=== PATIENT | female | born 1965 | race Caucasian/White ===

== ENCOUNTER 2019-12-13 16:09 | Inpatient (IN) ==
[2019-12-13] MEDS ORDERED: VANCOMYCIN 1 GM/NS 1 GM/250 ML IVPB IV ONE (17:13)
--- NOTE | 2019-12-13 17:32 | Vascular Study Report ---
EXAM: Venous U/S Right Leg HISTORY: right lower leg pain, has been treated for celluli TECHNIQUE: Right lower extremity venous Doppler ultrasound COMPARISON: None. FINDINGS: There is good flow and compressibility of the veins of the right lower extremity. No thrombus. IMPRESSION: No evidence of deep venous thrombosis within the right lower extremity. Electronically signed by Wolfgang Servin 12/13/2019 5:29 PM
--- NOTE | 2019-12-13 17:45 | PROVIDER DOCUMENTATION ---
This chart was entered by Florence Kenny Scribe, acting as scribe for Minnie Landa MD. HPI-Rash/Wound/ReCheck - General Chief Complaint: Extremity Pain Stated Complaint: LEG PAIN Time Seen by Provider: 12/13/19 16:37 Source: patient Allergies/Adverse Reactions: Allergies Allergy/AdvReac Type Severity Reaction Status Date / Time amoxicillin trihydrate * Allergy Intermediate ITCHING Verified 12/13/19 18:30 [From Augmentin] cephalexin monohydrate * Allergy Intermediate ANAPHYLAXIS Verified 12/13/19 18:30 [From Keflex] potassium clavulanate * Allergy Intermediate ITCHING Verified 12/13/19 18:30 [From Augmentin] Home Medications: Home Medication List Medication Instructions Recorded Confirmed Last Taken Type Metformin [Glucophage] 1 tab PO BID 12/13/19 12/13/19 Unknown History Sulfamethoxazole/Trimethoprim 1 tab PO BID 12/13/19 12/13/19 Unknown History [Sulfamethoxazole-Tmp Ds Tablet] - History of Present Illness-Dermatology Nature of Presenting Problem: 54yof presents to ED cc pain, redness, bleeding and warmth to RLE for 2 months. Pt reports she has been treated with 2 rounds of oral ABX(currently on Bactrim) for Cellulitis with no help. Pt denies Fever. Pt has hx of DM. Location: reports: lower extremity (RLE) Quality: reports: burning, painful, stinging Severity: reports: moderate, severe Onset/Duration: reports: other (2 months) Timing: reports: still present, changing over time, getting worse Context/Associated Symptoms: reports: other (cellulitis) Identifiable cause?: No Locality of Occurance: Home Similar Symptoms Previously?: Yes Recently seen or treated by another doctor?: Yes Review of Systems - Adult - REVIEW OF SYSTEMS - ADULT Constitutional: reports: see HPI. denies: chills, fever, fatique Eyes: reports: no symptoms reported Ears, Nose, Mouth & Throat: reports: no symptoms reported Cardiovascular: reports: see HPI. denies: chest pain Respiratory: reports: see HPI. denies: shortness of breath Gastrointestinal: reports: no symptoms reported Genitourinary: reports: no symptoms reported Musculoskeletal: reports: no symptoms reported Integumentary: reports: see HPI, skin sores/ulcer (RLE), other (cellulitis to RLE) Neurological: reports: no symptoms reported Psychiatric: reports: no symptoms reported Endocrine: reports: no symptoms reported Hematologic/Lymphatic: reports: no symptoms reported Allergic/Immunologic: reports: no symptoms reported All Other Systems: Reviewed and Negative Past History - Adult - PAST MEDICAL HISTORY-ADULT Review of Records: reports: Nursing Assessment Review, Medications Reviewed, Social history reviewed & non-contributory. Major Childhood Illnesses: reports: denies history Cardiovascular: reports: denies history Respiratory: reports: denies history Gastrointestinal: reports: denies history Obstetrical/Gynecological: reports: denies history Genitourinary: reports: denies history Musculoskeletal: reports: denies history Neurological: reports: denies history Endocrine/Immune: reports: denies history Other Conditions: reports: denies history - IMMUNIZATION STATUS Childhood Immunizations: See Nurse Assessment Flu Vaccine: See Nurse Assessment - FAMILY HISTORY Family History: reviewed, not pertinent Physical Exam-General - PHYSICAL EXAM-ADULT Initial Vital Signs Reviewed: Yes - CONSTITUTIONAL General Appearance: alert, obese. negative: anxious, combative - EYES Eyes: PERRL/EOMI, pink conjunctivae. negative: photophobia - HEAD, EARS, NOSE, MOUTH & THROAT HENMT: normocephalic/atraumatic, moist mucous membranes, other (mild slurred speech) - NECK Neck: supple - RESPIRATORY Respiratory: chest non-tender, lungs clear, normal breath sounds. negative: wheezing - CARDIOVASCULAR Cardiovascular: normal peripheral pulses, regular rate, rhythm. negative: bradycardia, tachycardia - MUSCULOSKELETAL Extremity: erythema (RLE front around to mid calf), tenderness (RLE front around to mid calf) - SKIN Integumentary: erythema (RLE front around to mid calf), tenderness (RLE front around to mid calf), warm (RLE front around to mid calf), other (oozing, pus and blood RLE front around to mid calf). negative: diaphoresis, jaundice - PSYCHIATRIC Psych/Mental Status: normal mood/affect, oriented x 3. negative: disheveled Progress - PLAN OF CARE/RESULTS Progress/Plan/Lab Results: Vital Signs - 8 hr 12/13/19 16:14 Temperature 97.7 F Pulse Rate 91 H Respiratory Rate 20 Blood Pressure 151/90 O2 Sat by Pulse Oximetry 97 Laboratory Results - last 24 hr 12/13/19 12/13/19 12/13/19 17:34 17:34 17:34 WBC 10.05 RBC 4.85 Hgb 14.9 Hct 43.8 MCV 90.3 MCH 30.7 MCHC 34.0 RDW Std Deviation 12.3 Plt Count 323 MPV 10.4 Immature Gran % (Auto) 0.1 Neut % (Auto) 68.7 Lymph % (Auto) 24.7 Marshall % (Auto) 4.7 Eos % (Auto) 1.5 Baso % (Auto) 0.3 Immature Gran # (Auto) 0.01 Neut # (Auto) 6.91 H Lymph # (Auto) 2.48 Marshall # (Auto) 0.47 Eos # (Auto) 0.15 Baso # (Auto) 0.03 PT INR PTT (Actin FS) Sodium 133 L Potassium 4.9 Chloride 96 L Carbon Dioxide 22 L Anion Gap 15 BUN 14 Creatinine 0.7 Estimated GFR/1.73 m2 > 60 BUN/Creatinine Ratio 20 Glucose 335 H Calculated Osmolality 280 Calcium 9.2 Total Bilirubin < 0.15 L AST 14 ALT 20 Alkaline Phosphatase 152 H Total Protein 6.7 Albumin 4.0 Globulin 3.0 Albumin/Globulin Ratio 1.0 Plasma Lactate 1.9 12/13/19 17:34 WBC RBC Hgb Hct MCV MCH MCHC RDW Std Deviation Plt Count MPV Immature Gran % (Auto) Neut % (Auto) Lymph % (Auto) Marshall % (Auto) Eos % (Auto) Baso % (Auto) Immature Gran # (Auto) Neut # (Auto) Lymph # (Auto) Marshall # (Auto) Eos # (Auto) Baso # (Auto) PT 11.8 INR 0.83 PTT (Actin FS) 25.0 Sodium Potassium Chloride Carbon Dioxide Anion Gap BUN Creatinine Estimated GFR/1.73 m2 BUN/Creatinine Ratio Glucose Calculated Osmolality Calcium Total Bilirubin AST ALT Alkaline Phosphatase Total Protein Albumin Globulin Albumin/Globulin Ratio Plasma Lactate Orders Category Date Time Status CHEST-PORTABLE [RAD] Stat Exams 12/13/19 17:12 Completed BLOOD CULTURE [BLDCUL] Stat Lab 12/13/19 18:26 Ordered CBC WITH ELECTRONIC DIFF [HEME] Stat Lab 12/13/19 17:34 Completed COMPREHENSIVE METABOLIC PANEL [CHEM] Stat Lab 12/13/19 17:34 Completed CRP HIGH SENSITIVITY Stat Lab 12/13/19 17:34 Received LACTATE, PLASMA [CHEM] Stat Lab 12/13/19 17:34 Completed PROTIME WITH INR [COAG] Stat Lab 12/13/19 17:34 Completed PTT [COAG] Stat Lab 12/13/19 17:34 Completed SED RATE [HEME] Stat Lab 12/13/19 17:34 Received URINALYSIS W/POSS RFLX CULT [URINALYSIS] Stat Lab 12/13/19 17:12 Uncollected URINE DRUG SCREEN PL Stat Lab 12/13/19 17:12 Uncollected 0.9% Sodium Chloride Inj [Ns] 1,000 ml Med 12/13/19 18:12 Active IV 999 mls/hr Piperacillin/Tazobactam [Zosyn] 4.5 gm Med 12/13/19 18:00 Active 0.9% Sodium Chloride Inj [Ns] 100 ml IV Q6H Vancomycin 1 gm/Ns Med 12/13/19 17:13 Discontinued 1 gm in 250 ml IV NOW US [Venous U/S Right Leg] Stat Ther 12/13/19 16:37 Completed Patient has failed outpatient therapy on bactrim. Will need admission. Spoke to Dr Oliva, communication [facility]. He states he will place orders for this patient. Result Diagrams: 12/13/19 17:34 12/13/19 17:34 - XRAY 1 XRAY Study: Chest (EXAM: CHEST-PORTABLE HISTORY: LE cellulitis, rule out other infection TECHNIQUE: Single view COMPARISON: 07/15/2013 FINDINGS: The lungs are well expanded. The heart is not enlarged. The vessels are not distended. There are no infiltrates. No effusion identified. IMPRESSION: No pneumonia) - ULTRASOUND (By Radiology) 1 US Study: Lower Ext (RLE) Impression: Normal (Negative for blood clot) - CONSULTS/PCP/HOSPITALIST Notification #1 *Consult/PCP/Hospitalist*: Krystal/EMPLOYER RELATIONS REPRESENTATIVE Time Discussed: 17:19 Consult Disposition: other (call back after all labs are back) #2 Consult: Dr Oliva Time Discussed: 18:48 Consult Disposition: Admit (States he will place orders for this patient.) Departure - Departure Date of Disposition Decision: 12/13/19 Time of Disposition Decision: 18:49 DIAGNOSIS: Cellulitis of right leg, Failure of outpatient treatment, Poorly controlled diabetes mellitus Disposition: ADMITTED INPATIENT 09 Certified Medical Emergency: Emergent Condition: Stable Referrals and Follow-Ups: None,PCP [Primary Care Provider] - - Critical Care Note This patient required my direct & personal management of CC.: No Attestation - Physician/ REYNA Attestation Patient care was provided by Advanced Practice Provider:: No The physician spent face to face time with patient:: Yes Advanced Practice Provider documentation review:: Supervising physician onsite and consulted in the evaluation and care of this patient. The physician did have a face to face encounter with the patient. This chart was documented by the indicated scribe, (Florence Kenny Scribe) and accurately reflects the services I performed and decisions made by me, Minnie Landa MD, as attested by the provider's signature.
[2019-12-13 17:52] LABS: BASO# 0.03 X1000 (0.0-0.2); BASO% 0.3 % (0.0-0.8); EOS# 0.15 X1000 (0.0-0.7); EOS% 1.5 % (0.0-10.0); HEMATOCRIT 43.8 % (37.0-47.0); HEMOGLOBIN 14.9 g/dL (12.0-16.0); IMM GRAN# 0.01 X1000 (0.0-0.04); IMM GRAN% 0.1 % (0.0-0.5); LYMPH# 2.48 X1000 (1.2-3.4); LYMPH% 24.7 % (20.5-51.1); MCH 30.7 PG (27-31); MCV 90.3 FL (81-99); MONO# 0.47 X1000 (0.11-0.59); MONO% 4.7 % (1.7-9.3); MPV 10.4 FL (7.4-10.4); NEUT# 6.91 X1000 (1.4-6.5); NEUT% 68.7 % (42.2-75.2); PLT 323 X1000 (130-400); RBC 4.85 XMIL (4.2-5.4); RDW 12.3 % (11.5-14.5); WBC 10.05 X1000 (4.8-10.8)
[2019-12-13] MEDS ORDERED: ZOSYN 4.5 GM in NS 100 ML IV SCH (18:00)
[2019-12-13 18:06] LABS: AGAP 15; ALKALINE PHOSPHATASE 152 U/L (32-104); BUN 14 mg/dL (8-22); CALCIUM 9.2 mg/dL (8.8-10.2); CHLORIDE 96 mmol/L (98-107); COSMO 280; CREATININE 0.7 mg/dL (0.5-0.9); ESTIMATED GFR > 60; GLUCOSE 335 mg/dL (70-104); GOT 14 U/L (10-30); GPT 20 U/L (10-36); POTASSIUM 4.9 mmol/L (3.5-5.1); SODIUM 133 mmol/L (136-145); TCO2 22 mmol/L (25-35); TOTAL BILIRUBIN < 0.15 mg/dL (0.20-1.00); TOTAL PROTEIN 6.7 g/dL (6.3-8.3)
[2019-12-13 18:08] LABS: INR 0.83; PROTIME 11.8 Seconds (11.0-16.0)
[2019-12-13] MEDS ORDERED: NS 1,000 ML IV ONE (18:12)
--- NOTE | 2019-12-13 18:20 | Diag Imaging Result Doc PS360 ---
EXAM: CHEST-PORTABLE HISTORY: LE cellulitis, rule out other infection TECHNIQUE: Single view COMPARISON: 07/15/2013 FINDINGS: The lungs are well expanded. The heart is not enlarged. The vessels are not distended. There are no infiltrates. No effusion identified. IMPRESSION: No pneumonia Electronically signed by Wolfgang Servin 12/13/2019 6:18 PM
[2019-12-13] MEDS ORDERED: MORPHINE IV PRN (19:05)
[2019-12-13 19:10] LABS: URINE SOURCE CLEAN CATCH
[2019-12-13 19:12] LABS: BILIRUBIN URINE NEGATIVE (NEGATIVE); BLOOD URINE NEGATIVE (NEGATIVE); COLOR YELLOW; GLUCOSE URINE >1000 mg/dL (NEGATIVE); KETONE URINE TRACE mg/dL (NEGATIVE); LEUKOCYTES URINE NEGATIVE (NEGATIVE); NITRITE URINE NEGATIVE (NEGATIVE); PROTEIN URINE TRACE mg/dL (NEGATIVE); SP GRAVITY URINE 1.042; TURBIDITY URINE CLEAR (CLEAR); UROBILINOGEN URINE NORMAL (NORMAL)
[2019-12-13] MEDS ORDERED: AZACTAM 2 GM in NS 100 ML IV SCH (19:15)
[2019-12-13] MEDS ORDERED: VANCOMYCIN IV PER PHARMACY MISC SCH (19:15)
[2019-12-13 19:26] LABS: UR AMPHETAMINES QUAL NONE DETECTED (NONE DETECT); UR BARBITUATES QUAL NONE DETECTED (NONE DETECT); UR BENZODIAZEPIN QUAL PRESUMPTIVE POSITIVE (NONE DETECT); UR CANNABINOIDS QUAL NONE DETECTED (NONE DETECT); UR COCAINE QUAL NONE DETECTED (NONE DETECT); UR METHADONE QUAL NONE DETECTED (NONE DETECT); UR METHAMPHETAMINE QUAL NONE DETECTED (NONE DETECT); UR OPIATES QUAL NONE DETECTED (NONE DETECT); UR OXYCODONE QUAL NONE DETECTED (NONE DETECT); UR PCP QUAL NONE DETECTED (NONE DETECT); UR PROPOXYPHENE QUAL NONE DETECTED (NONE DETECT); UR TCA QUAL NONE DETECTED (NONE DETECT)
[2019-12-13 19:54] LABS: UR EPITHELIAL CELLS >10 /HPF (<10); URINE BACTERIA 2+ /HPF; URINE CASTS NONE SEEN; URINE CRYSTALS NONE SEEN; URINE RBC <10 /HPF (<10); URINE WBC <10 /HPF (<10); URINE YEAST NONE SEEN
[2019-12-13] MEDS ORDERED: AZACTAM IV ONE (20:00)
[2019-12-13] MEDS ORDERED: NS IV ONE (20:00)
[2019-12-13] MEDS: CLINDAMYCIN 600 MG/D5W 600 MG/50 ML IVPB IV SCH (21:30)
[2019-12-13] MEDS: HUMALOG (PARKWAY) SUBQ SCH (21:30)
[2019-12-13] MEDS: MORPHINE IV PRN (21:31)
[2019-12-14] MEDS: VANCOMYCIN 1 GM/NS 1 GM/250 ML IVPB IV SCH ×2 (00:19→02:56)
[2019-12-14] MEDS: MORPHINE IV PRN ×4 (01:39→18:30)
[2019-12-14] MEDS: CLINDAMYCIN 600 MG/D5W 600 MG/50 ML IVPB IV SCH ×3 (05:33→21:28)
[2019-12-14] MEDS: HUMALOG (PARKWAY) SUBQ SCH ×4 (06:24→21:18)
[2019-12-14 06:28] LABS: BASO# 0.02 X1000 (0.0-0.2); BASO% 0.2 % (0.0-0.8); EOS% 2.3 % (0.0-10.0); HEMATOCRIT 40.2 % (37.0-47.0); HEMOGLOBIN 13.4 g/dL (12.0-16.0); IMM GRAN# 0.02 X1000 (0.0-0.04); IMM GRAN% 0.2 % (0.0-0.5); LYMPH# 2.64 X1000 (1.2-3.4); LYMPH% 30.7 % (20.5-51.1); MCH 30.6 PG (27-31); MCHC 33.3 g/dL (33-37); MCV 91.8 FL (81-99); MONO# 0.57 X1000 (0.11-0.59); MONO% 6.6 % (1.7-9.3); MPV 10.1 FL (7.4-10.4); NEUT# 5.15 X1000 (1.4-6.5); PLT 294 X1000 (130-400); RBC 4.38 XMIL (4.2-5.4); RDW 12.6 % (11.5-14.5)
[2019-12-14 06:49] LABS: HEMOGLOBIN A1C 12.5 % (4.8-6.0)
[2019-12-14 06:50] LABS: AGAP 12; ALBUMIN 3.5 g/dL (3.5-5.0); BUN 13 mg/dL (8-22); CALCIUM 8.6 mg/dL (8.8-10.2); CHLORIDE 100 mmol/L (98-107); COSMO 280; CREATININE 0.5 mg/dL (0.5-0.9); ESTIMATED GFR > 60; GLUCOSE 180 mg/dL (70-104); PHOSPHORUS 4.1 mg/dL (2.7-4.5); POTASSIUM 4.5 mmol/L (3.5-5.1); SODIUM 138 mmol/L (136-145); TCO2 26 mmol/L (25-35)
[2019-12-14] MEDS: AZACTAM 2 GM in NS 100 ML IV SCH ×2 (08:42→18:29)
[2019-12-14] MEDS ORDERED: VANCOMYCIN 2,000 MG in NS 500 ML IV SCH (10:00)
--- NOTE | 2019-12-14 13:45 | Diag Imaging Result Doc PS360 ---
EXAM: LOWER LEG-RIGHT 12/14/2019 HISTORY: ? osteo, chronic wound TECHNIQUE: Portable right lower leg four views COMMENT: There is subcutaneous edema particularly laterally. There is no evidence of fracture, dislocation, periosteal reaction, or erosion. There are soft tissue calcifications anterior to the tibia. These may be phleboliths. IMPRESSION: No evidence of acute bony abnormality. Soft tissue swelling/edema. Electronically signed by Oliver Diggs 12/14/2019 1:43 PM
--- NOTE | 2019-12-14 14:43 | HISTORY AND PHYSICAL ---
CHIEF COMPLAINT: Right lower extremity pain. HPI: This is a 54-year-old female with a history of diabetes mellitus who presents to the emergency room complaining of right lower extremity pain, redness, swelling and drainage for 2 months. She has been evaluated by an outside care provider and given clindamycin in September and Bactrim December 04. She does state that she took both prescriptions as prescribed and her leg has only gotten worse. She states that she has had yellow clear and bloody drainage from this area. She states that she does have intermittent pain she describes this is a stinging sensation. She denies any fevers or chills. PAST MEDICAL HISTORY: Diabetes mellitus. PAST SURGICAL HISTORY: , tubal ligation. SOCIAL HISTORY: She denies any alcohol, tobacco or illicit drug use. ALLERGIES: Amoxicillin, Augmentin which caused itching and Keflex which causes anaphylaxis. HOME MEDICATIONS: Metformin 500 mg b.i.d., Bactrim DS 1 p.o. b.i.d. REVIEW OF SYSTEMS: Discussed with patient with pertinent positives stated in the HPI. She denied any syncope, dizziness, chest pain, palpitations, shortness of breath, cough, fever, chills, any night sweats, any recent weight loss or weight gain, nausea, vomiting, diarrhea, constipation, any black or bloody vomitus or stools, hematuria dysuria frequency, urgency. PHYSICAL EXAMINATION: GENERAL: This is a 54-year-old female who is sitting up on the side of the bed eating in no distress. VITAL SIGNS: Blood pressure is 131/70 with heart rate 78, respirations 18, temperature is 97.9 degrees oral with room air saturations 100%. HEENT: Pupils equal, round, react to light. EOMs are intact. Sclerae are anicteric. Head is normocephalic, atraumatic. Mucous membranes are moist. NECK: Supple with trachea midline. No JVD. CARDIOVASCULAR: Regular rate and rhythm. S1 and S2 appreciated. She denies bilateral calf tenderness with peripheral pulses palpable x4 extremities. PULMONARY: Breath sounds are clear. No increased work of breathing noted. Chest rise falls symmetric respiration. Chest wall is nontender to palpation . GASTROINTESTINAL: Abdomen soft, nontender, nondistended. Bowel sounds in all 4 quadrants. NEUROLOGIC: She is alert, oriented x3. SKIN: Warm and dry. She has erythema noted to midcalf that goes around to midaxillary area, this area is warm to touch. It is oozing purulent yellow drainage as well as clear honey-colored drainage. LABS: WBC is 8.6 with hemoglobin 13.4, hematocrit 40.2 and platelets of 294,000. Sodium 138, potassium 4.5, BUN 13, creatinine 0.5 with blood sugars ranging from 180 to 330. Hemoglobin A1c is 12.5. Urinalysis has greater than 1000 glucose and greater than 10 epithelial cells with less than 10 microscopic red blood cells, white blood cells. Urine drug screen is presumptive positive for benzodiazepines. Blood cultures, urine culture pending. Chest x-ray reveals no pneumonia, no infiltrates, no effusion. ASSESSMENT AND PLAN: 1. Right lower extremity cellulitis failed outpatient treatment. 2. Poorly controlled diabetes mellitus with a hemoglobin A1c of 12.5. 3. The patient has been admitted to the medical-surgical floor. She will be placed on pattern blood glucose with sliding scale insulin. 4. Continue antibiotics of Azactam, clindamycin and vancomycin and further antibiotics will be culture driven. 5. Wound culture of her right lower extremity. 6. Wound Care has been consulted. 7. Further treatments pending hospital course. Dictated by ANAM Castillo for Jer Kidd MD cc: ANAM Castillo MD
[2019-12-14] MEDS: VANCOMYCIN 2,000 MG in NS 500 ML IV SCH (14:52)
--- NOTE | 2019-12-14 22:23 | HISTORY AND PHYSICAL ---
ADDENDUM: Patient seen and examined by myself. Full note dictated and discussed with nurse practitioner. Patient is a 54-year-old female who presented to the hospital with what she states is a 2-month history of worsening redness and swelling in her right lower extremity. She has terribly controlled diabetes at home with an A1c of 12.5. We are going to admit to the hospital, place her on antibiotics, blood sugar control and we will follow. cc: Jre Kidd MD
[2019-12-15] MEDS: AZACTAM 2 GM in NS 100 ML IV SCH ×3 (02:42→17:50)
[2019-12-15] MEDS: VANCOMYCIN 2,000 MG in NS 500 ML IV SCH ×2 (02:47→15:08)
[2019-12-15] MEDS: MORPHINE IV PRN ×4 (03:33→23:14)
[2019-12-15] MEDS: CLINDAMYCIN 600 MG/D5W 600 MG/50 ML IVPB IV SCH ×2 (05:55→13:05)
[2019-12-15 06:48] LABS: BASO# 0.03 X1000 (0.0-0.2); BASO% 0.4 % (0.0-0.8); EOS# 0.21 X1000 (0.0-0.7); EOS% 2.5 % (0.0-10.0); HEMATOCRIT 42.1 % (37.0-47.0); HEMOGLOBIN 13.9 g/dL (12.0-16.0); IMM GRAN# 0.05 X1000 (0.0-0.04); IMM GRAN% 0.6 % (0.0-0.5); LYMPH# 2.14 X1000 (1.2-3.4); MCH 30.8 PG (27-31); MCV 93.1 FL (81-99); MONO# 0.61 X1000 (0.11-0.59); MONO% 7.1 % (1.7-9.3); MPV 10.3 FL (7.4-10.4); NEUT# 5.52 X1000 (1.4-6.5); NEUT% 64.4 % (42.2-75.2); PLT 302 X1000 (130-400); RBC 4.52 XMIL (4.2-5.4); RDW 12.6 % (11.5-14.5); WBC 8.56 X1000 (4.8-10.8)
[2019-12-15 06:50] LABS: AGAP 14; ALBUMIN 3.2 g/dL (3.5-5.0); BUN 14 mg/dL (8-22); CALCIUM 8.6 mg/dL (8.8-10.2); CHLORIDE 99 mmol/L (98-107); COSMO 277; CREATININE 0.4 mg/dL (0.5-0.9); ESTIMATED GFR > 60; GLUCOSE 255 mg/dL (70-104); PHOSPHORUS 4.1 mg/dL (2.7-4.5); POTASSIUM 4.6 mmol/L (3.5-5.1); SODIUM 134 mmol/L (136-145); TCO2 21 mmol/L (25-35)
[2019-12-15] MEDS: HUMALOG (PARKWAY) SUBQ SCH ×3 (06:58→16:48)
[2019-12-15] MEDS: LANTUS INSULIN SUBQ SCH (08:45)
[2019-12-15] MEDS: GLUCOPHAGE PO SCH ×2 (08:45→17:51)
[2019-12-15] MEDS ORDERED: CLINDAMYCIN 600 MG/D5W 600 MG/50 ML IVPB IV ONE (22:00)
--- NOTE | 2019-12-15 22:52 | PROGRESS NOTE ---
DATE: 12/15/2019 SUBJECTIVE: The patient with no complaints other than her right leg swelling and pain. PHYSICAL EXAM: Temperature 97, pulse 78, respiratory rate 18, BP 110/58.General: Patient is pleasant, currently in no respiratory distress. HEENT: Normocephalic. Neck: Supple. Cardiovascular: Regular rate. Extremities: Left foot and ankle areas are red and swollen. PHYSICAL EXAM: Vital signs: Temperature 97.6, pulse 78, respiratory 15, BP 115/58. General: Patient is pleasant. She is in no current respiratory distress. HEENT: Normocephalic. Neck: Is supple. CV: Regular rate. Chest: Clear, nonlabored. Abdomen: Soft. Extremities: Moves all extremities. Skin: As noted above. ASSESSMENT: 1. Right lower extremity cellulitis. 2. Poorly controlled diabetes. 3. Hyponatremia. PLAN: We are going to continue the patient in the hospital. Would continue to adjust her blood sugar medications and we will follow. Continue antibiotics. Hopefully home over the next 2 to 3 days. cc: Jer Kidd MD
[2019-12-16] MEDS ORDERED: CLINDAMYCIN 600 MG/NS 600 MG/50 ML IVPB IV SCH (06:00)
[2019-12-16] MEDS: HUMALOG (PARKWAY) SUBQ SCH ×5 (06:24→21:47)
[2019-12-16] MEDS: MORPHINE IV PRN ×3 (06:30→23:22)
[2019-12-16 07:17] LABS: BASO# 0.01 X1000 (0.0-0.2); BASO% 0.2 % (0.0-0.8); EOS# 0.17 X1000 (0.0-0.7); EOS% 2.6 % (0.0-10.0); HEMATOCRIT 44.7 % (37.0-47.0); HEMOGLOBIN 14.6 g/dL (12.0-16.0); IMM GRAN# 0.02 X1000 (0.0-0.04); IMM GRAN% 0.3 % (0.0-0.5); LYMPH# 2.15 X1000 (1.2-3.4); LYMPH% 32.9 % (20.5-51.1); MCH 29.8 PG (27-31); MCHC 32.7 g/dL (33-37); MCV 91.2 FL (81-99); MONO% 6.1 % (1.7-9.3); NEUT# 3.79 X1000 (1.4-6.5); NEUT% 57.9 % (42.2-75.2); PLT 343 X1000 (130-400); RDW 12.7 % (11.5-14.5); WBC 6.54 X1000 (4.8-10.8)
[2019-12-16 07:35] LABS: AGAP 13; ALBUMIN 3.7 g/dL (3.5-5.0); BUN 18 mg/dL (8-22); CALCIUM 9.1 mg/dL (8.8-10.2); CHLORIDE 99 mmol/L (98-107); COSMO 285; CREATININE 0.5 mg/dL (0.5-0.9); ESTIMATED GFR > 60; GLUCOSE 263 mg/dL (70-104); PHOSPHORUS 4.1 mg/dL (2.7-4.5); POTASSIUM 4.6 mmol/L (3.5-5.1); SODIUM 137 mmol/L (136-145); TCO2 25 mmol/L (25-35)
[2019-12-16] MEDS: GLUCOPHAGE PO SCH ×2 (09:18→16:48)
[2019-12-16] MEDS: CLINDAMYCIN 600 MG/D5W 600 MG/50 ML IVPB IV SCH ×3 (09:18→23:22)
[2019-12-16] MEDS: LANTUS INSULIN SUBQ SCH (09:19)
--- NOTE | 2019-12-17 00:54 | PROGRESS NOTE ---
DATE: 12/16/2019 SUBJECTIVE: Patient with no complaints. Still worried about her right lower extremity. PHYSICAL EXAMINATION: Vital Signs: Temperature 97 degrees, pulse 83, respiratory rate 18, BP 138/61. General: Patient is awake, alert. She is in no current distress. She is sitting in bed preparing for breakfast. HEENT: Normocephalic. Neck: Supple. Cardiovascular: Regular rate. Chest: Clear. Abdomen: Soft. Extremities: Moves all extremities. ASSESSMENT: 1. Right lower extremity cellulitis. Continues to improve. 2. Diabetes with an A1c of 12.5. We have restarted her home medications. PLAN: We have stopped her antibiotics. We have switched to clindamycin IV only and we will follow. Hopefully, her symptoms will improve and she can hopefully discharge home. cc: Jer Kidd MD
[2019-12-17] MEDS: HUMALOG (PARKWAY) SUBQ SCH ×2 (06:15→11:21)
[2019-12-17] MEDS: GLUCOPHAGE PO SCH (08:37)
[2019-12-17] MEDS: LANTUS INSULIN SUBQ SCH (08:38)
[2019-12-17] MEDS: CLINDAMYCIN 600 MG/D5W 600 MG/50 ML IVPB IV SCH (08:38)
[2019-12-17] MEDS ORDERED: JANUVIA PO SCH (09:00)
[2019-12-17 09:25] VITALS: BP 119/53
[2019-12-17] MEDS ORDERED: CLEOCIN PO SCH (15:00)
--- NOTE | 2019-12-17 22:33 | DISCHARGE SUMMARY ---
ADMISSION DATE: 12/13/2019 DISCHARGE DATE: 12/17/2019 DIAGNOSES: 1. Right lower extremity cellulitis. 2. Diabetes mellitus with a hemoglobin A1c of 12.5. DIAGNOSTICS: 1. Venous Doppler, right lower extremity, revealed no DVT. 2. Chest x-ray revealed no pneumonia. 3. Right lower extremity x-ray revealed no evidence of acute bony abnormality. Soft-tissue edema and swelling are noted anterior to the tibia. 4. Microbiology: Blood cultures x2 revealed no growth after 48 hours. 5. Urine culture revealed mixed shelli. 6. Wound culture revealed diphtheroids. HOSPITAL COURSE: Ms Oliva presented to the emergency room, complaining of redness, swelling and drainage to her right lower extremity x2 months. After taking a round clindamycin as well as Bactrim, it persists, prompting her to come to the emergency room for evaluation. She was found to have cellulitis. X-ray revealed no bony abnormality. Venous Doppler revealed no signs of DVT. She was evaluated by Wound Care with Unna boot applied. She was noted to have a hemoglobin A1c of 12.5. We did discuss with the patient the perils of continuing with such high blood sugars, the fact that these could delay her healing. She did voice understanding. She received Azactam, clindamycin and vancomycin while in the hospital and she is being discharged on clindamycin. DISCHARGE VITAL SIGNS: Blood pressure is 119/53 with a heart rate of 83, respirations are 20, temperature 97.5 degrees with room air saturations 99 to 100. DISCHARGE PHYSICAL EXAMINATION: This is a 54-year-old female who is sitting up in the chair beside the bed in no distress. Eyes: Pupils equal, round, react to light. EOMs are intact, sclerae anicteric. HEENT: Head is normocephalic, atraumatic. Mucous membranes are moist. Neck: Supple with trachea midline. Cardiovascular: Regular rate and rhythm, S1, S2 are appreciated. Pulmonary: Breath sounds are clear. No increased work of breathing noted. Gastrointestinal: The abdomen is soft, nontender, nondistended with bowel sounds in all 4 quadrants. Neurologic: She is alert and oriented x3. Extremities: An Unna boot is noted to right lower extremity with good PMS. FOLLOWUP: [facility] on 12/20/2019. They will call her with the time. DISCHARGE MEDICATIONS: 1. Clindamycin 300 mg p.o. t.i.d. x10 days. 2. Metformin 500 mg p.o. b.i.d. 3. Januvia 100 mg p.o. daily. DISCHARGE INSTRUCTIONS: She has been instructed to call to be seen sooner or return to the emergency room for temperature greater than 101, any foul-smelling drainage, purulent drainage from her right lower extremity, any chest pain, palpitations, shortness of breath, any nausea, vomiting, diarrhea, constipation, black or bloody vomitus or stools, any hematuria, dysuria, frequency or urgency. DISPOSITION: She being discharged home in stable condition with family members. TIME SPENT: This is a greater than 30 minute discharge. Dictated by ANAM Castillo for Jer Kidd MD cc: ANAM Castillo MD
--- NOTE | 2019-12-18 05:39 | DISCHARGE SUMMARY ---
ADMISSION DATE: 12/13/2019 DISCHARGE DATE: 12/17/2019 ADDENDUM: Patient seen and examined by myself. Full note dictated and discussed with nurse practitioner. On discharge, patient is awake, alert. She is in no distress. Her right lower extremity cellulitis has improved. Culture only grew diphtheroids. She does have a poorly controlled diabetes with an A1c of 12.5 at home. She is on Glucophage. We will add Januvia. We will discharge her home on clindamycin p.o. She will stay off work until she follows up with wound clinic next week and then hopefully can resume work. cc: Jer Kidd MD
== END 2019-12-17 13:17 | disposition home or self-care (01) | DRG 603 ==
LOC: P.ED 16:09 → P.MEDSURG 16:10 → SUATTDRO 16:10
PROVIDERS: ATTEND Family Medicine